=== PATIENT | female | born 1995 | race Caucasian/White ===

== ENCOUNTER 2017-01-24 15:21 | Emergency (ER) | payer OTHER ==
[~2017-01-24] VITALS: Ht 167.6 cm; Wt 65.4 kg
[2017-01-24 15:23] VITALS: TEMP 37.1; Ht 167.6 cm; Wt 65.4 kg
[2017-01-24] MEDS ORDERED: IBUPROFEN 600 MG TAB PO STA (15:42)
[2017-01-24] MEDS ORDERED: IBUP-103 PO (15:55)
--- NOTE | 2017-01-24 16:09 | DIAGNOSTIC IMAGING REPORT ---
L KNEE 3 VIEWS CLINICAL HISTORY: left knee pain/swelling pain. Edema. COMPARISON: None. DISCUSSION: The bones and joint spaces appear intact. There is no evidence of fracture, dislocation or bony disease. There is no evidence for soft tissue swelling. IMPRESSION: Negative study. The above report was generated using voice recognition software. It may contain grammatical, syntax or spelling errors. Electronically signed by: Feliberto Coleman M.D. 01/24/2017 4:08 PM Dictated Date/Time: 01/24/2017 4:07 PM
--- NOTE | 2017-01-24 16:19 | EMERGENCY ROOM VISIT NOTE ---
ED Visit Note First contact with patient: 15:30 CHIEF COMPLAINT: left knee pain HISTORY OF PRESENT ILLNESS: This 21-year-old female patient presents to the emergency department, ambulatory, on crutches, one day after sustaining an injury to the left knee. The patient states she standing with her left leg on the ground, and her right leg was being held. 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 She states the left leg then buckled, and she felt like it spun around. She states the ground was slippery, and she fell. She attempted to stand back up, then noticed her left knee seemed to pop. She is now having difficulty with weightbearing, and she has noticed significant swelling in the leg. The pain seems to be improving today, however she is continuing to have difficulty with weightbearing and swelling. Approximally 2 weeks ago, the patient states she was walking on a curb, when her left knee popped out then back in. She states at that time she did have some swelling and pain. The symptoms did seem to improve after a few days. The patient denies any other injuries besides their knee. The patient does have swelling, but no bruising. There is pain in the medial aspect of the knee. They rate the pain as throbbing and 2/10. The patient states they are able to walk on it, however barely. No numbness or tingling. No previous injuries to this knee. No ankle, foot or hip pain. REVIEW OF SYSTEMS: A 6 system review of systems was completed with positives and pertinent negatives listed in the HPI. ALLERGIES: None MEDICATIONS: None PMH: None SOCIAL HISTORY: Lives locally. She is a [employer] student. She is currently doing student teaching. She denies drug, alcohol, tobacco use. PHYSICAL EXAM: Vital Signs: Reviewed Nurse's notes, vital signs stable. GENERAL : This is a 21-year-old female, no acute distress, but appears in pain, well- developed, well-nourished. MENTAL STATUS: Alert, oriented to person place and time, and cooperative. MUSCULOSKELETAL: The left knee is moderately swollen. There is no ecchymosis. There is no joint effusion present. The patient is tender on the medial aspect. There is no joint line tenderness. The patella does appropriately subluxate. Range of motion is full, however painful. Strength of the quads and hamstrings is 5/5. Esha's is negative. Analia's and Anterior Drawer tests are negative. There is discomfort with varus and valgus stressing. The foot and toes are warm and well-perfused. Dorsalis pedis pulse 2+. Sensation to pain and light touch is intact. Capillary refill less than 2 seconds. RADIOLOGY: X-Ray Left Knee: L KNEE 3 VIEWS CLINICAL HISTORY: left knee pain/swelling pain. Edema. COMPARISON: None. DISCUSSION: The bones and joint spaces appear intact. There is no evidence of fracture, dislocation or bony disease. There is no evidence for soft tissue swelling. IMPRESSION: Negative study. The above report was generated using voice recognition software. It may contain grammatical, syntax or spelling errors. Electronically signed by: Feliberto Coleman M.D. 01/24/2017 4:08 PM Dictated Date/Time: 01/24/2017 4:07 PM EMERGENCY DEPARTMENT COURSE: I examined the patient. The patient was given 600 mg ibuprofen and an ice pack. X-rays of the left knee were reviewed by myself and read by radiology and reveal no acute fracture or dislocation. The patient was placed in a knee immobilizer under my direction and the position was satisfactory. The patient was instructed on the use of crutches. She was encouraged to follow up outpatient with orthopedics. Discharge instructions were reviewed. The patient was discharged home in good condition. Patient was found to have normal blood pressure on screening and does not require follow-up. I attest that I have personally reviewed the patient's current medication list. DIFFERENTIAL DIAGNOSIS: Sprain, strain, fracture, contusion, ligament tear, and others DIAGNOSIS: Knee sprain Current/Historical Medications Scheduled PRN Ibuprofen Tab (Advil), 400 MG PO DAILY PRN for Pain Allergies Coded Allergies: No Known Allergies (Unverified , 01/24/17) Vital Signs Date Time Temp Pulse Resp B/P (MAP) Pulse Ox O2 Delivery O2 Flow Rate FiO2 01/24/17 16:47 100 16 148/85 98 01/24/17 15:23 37.1 100 16 148/85 98 Room Air Medications Administered Medications (Trade) Dose Ordered Sig/Rodney Route Start Time Stop Time Status Last Admin Dose Admin Ibuprofen (Motrin Tab) 600 mg NOW STAT PO 01/24/17 15:42 01/24/17 15:43 DC 01/24/17 15:47 600 MG Departure Information Impression Primary Impression: Sprain of knee Dispostion Home / Self-Care Condition GOOD Referrals [facility] (PCP) Keven Pichardo D.O. Patient Instructions ED Sprain Knee Collateral Ligaments, [facility] Additional Instructions You have been treated in the Emergency Department for Knee Pain. For pain control, you can use the following [id number] medicines (if >12 yo): Ibuprofen(Motrin, Advil) may be used for fever or pain. Use 600mg every six hours as needed. Take with food. Avoid using more than 2400mg in a 24 hour period. Do not use 2400mg per day for more than three consecutive days without physician direction. Prolonged inappropriate use can lead to stomach upset or ulcers. (AND/OR) Acetaminophen(Tylenol) may be used for fever or pain. Use 1000mg every six hours as needed. Avoid using more than 3000mg in a 24 hour period. If this is a recent injury (<24 hrs), ice can be applied to the area of pain for the first 3 days to help decrease pain and inflammation. Ice massages can be performed by freezing water in a paper cup, peeling back the cup to expose the ice and then massaging over the affected area. You have been provided the number for an Orthopaedic Surgeon. You should call this number as soon as possible to establish a follow-up visit from today's Emergency Department visit. Keep the knee brace in place until cleared by Orthopedics. Use the crutches you have been provided to keep ALL weight off of the knee until weight bearing is tolerable. Return to the Emergency Department if your current symptoms worsen despite treatment course outlined above. Problem Qualifiers Primary Impression: Sprain of knee Encounter type: initial encounter Involved ligament of knee: medial collateral ligament Laterality: left Qualified Codes: S83.412A - Sprain of medial collateral ligament of left knee, initial encounter
[2017-01-24 16:47] VITALS: BP 148/85; PULSE 100; O2SAT 98
== END 2017-01-24 16:49 | disposition home or self-care (01) ==
LOC: C.EDB 15:23 → C.EDD 16:49
DX: S83.412A Sprain of medial collateral ligament of left knee, initial encounter (principal); W19.XXXA Unspecified fall, initial encounter; Y92.9 Unspecified place or not applicable